=== PATIENT | male | born 1960 | race African-American/Black ===

== ENCOUNTER 2018-05-05 18:16 | Emergency (ER) | payer OTHER ==
[~2018-05-05] VITALS: Ht 193 cm; Wt 113.6 kg
[2018-05-05] MEDS ORDERED: HYDR25TA PO (18:35)
[2018-05-05] MEDS ORDERED: LOSA25TA41 PO (18:35)
[2018-05-05] MEDS ORDERED: ASPI81 PO (18:35)
[2018-05-05] MEDS ORDERED: LOSARTAN POTASSIUM 25 MG TABLET PO ONE (19:45)
[2018-05-05] MEDS ORDERED: ACETAMINOPHEN 325 MG TABLET PO ONE (19:45)
[2018-05-05 20:09] VITALS: BP 144/88
== END 2018-05-05 20:09 | disposition home or self-care (01) ==
LOC: EMS 18:17
DX: R51 Headache (principal); I10 Essential (primary) hypertension; Z79.82 Long term (current) use of aspirin

== ENCOUNTER 2018-07-07 17:58 | Emergency (ER) | payer OTHER ==
[~2018-07-07] VITALS: Ht 182.9 cm; Wt 113.6 kg
[~2018-07-07 17:58] MED LIST: ASPI81 PO; HYDR25TA PO; LOSA25TA41 PO
[2018-07-07 18:03] VITALS: BP 152/84
[2018-07-07 19:32] LABS: INFLUENZA TYPE A NEGATIVE FOR TYPE A (NEGATIVE); INFLUENZA TYPE B NEGATIVE FOR TYPE B (NEGATIVE)
== END 2018-07-07 21:31 | disposition home or self-care (01) ==
LOC: EMS 17:58
DX: J32.9 Chronic sinusitis, unspecified (principal); I10 Essential (primary) hypertension; Z79.82 Long term (current) use of aspirin
CPT/HCPCS: 87804